=== PATIENT | female | born 1985 | race Caucasian/White ===

== ENCOUNTER 2017-10-19 12:33 | Emergency (ER) | payer OTHER ==
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
[2017-10-19] MEDS ORDERED: LET GEL TOPICAL 1 EA SYR TP ONE (12:55)
[2017-10-19 14:30] VITALS: BP 138/92
== END 2017-10-19 14:30 | disposition home or self-care (01) ==
PROC: 0HQ1XZZ Repair Face Skin, External Approach (ICD-10-PCS; principal; 2017-10-19)
DX: S01.81XA Laceration without foreign body of other part of head, initial encounter (principal); S40.212A Abrasion of left shoulder, initial encounter; S10.11XA Abrasion of throat, initial encounter; S60.511A Abrasion of right hand, initial encounter; S60.512A Abrasion of left hand, initial encounter; S80.211A Abrasion, right knee, initial encounter; S80.212A Abrasion, left knee, initial encounter; V18.9XXA Unspecified pedal cyclist injured in noncollision transport accident in traffic accident, initial encounter; Y92.410 Unspecified street and highway as the place of occurrence of the external cause